=== PATIENT | female | born 1950 | race Two or more races ===

== ENCOUNTER 2022-06-11 12:06 | Emergency (ER) | payer OTHER ==
[~2022-06-11] VITALS: Ht 154.9 cm; Wt 61.2 kg
[2022-06-11] MEDS ORDERED: HUMALOG100 UNIT/2 SQ (12:30)
[2022-06-11] MEDS ORDERED: GLUCOTROL XL5 MG PO (12:31)
[2022-06-11] MEDS ORDERED: AVALIDE 300-121 EACH PO (12:31)
== END 2022-06-11 18:22 | disposition home or self-care (01) ==
LOC: ER 12:06
DX: G43.809 Other migraine, not intractable, without status migrainosus (principal); E11.9 Type 2 diabetes mellitus without complications; I10 Essential (primary) hypertension; E03.9 Hypothyroidism, unspecified; Z79.4 Long term (current) use of insulin

== ENCOUNTER 2023-10-21 09:45 | Outpatient (CLI) | payer OTHER ==
[~2023-10-21 09:45] MED LIST: AVALIDE 300-121 EACH PO; GLUCOTROL XL5 MG PO; HUMALOG100 UNIT/2 SQ
[2023-10-23 17:06] LABS: quan ag 0.03 IU/mL (.); quan ag 0.04 IU/mL (.); quan mito > 10.00 IU/mL (.); quant nil 0.01 IU/mL (.)
[2023-10-25 23:05] LABS: H.mycelial CF Negative (Neg:<1:2); H.mycelial ID Negative (Negative); H.yeast CF Negative (Neg:<1:2)
== END 2023-10-21 09:48 | disposition home or self-care (01) ==
LOC: LAB 09:45
PROVIDERS: ATTEND Internal Medicine Pulmonary Disease
DX: A15.0 Tuberculosis of lung (principal); B39.4 Histoplasmosis capsulati, unspecified

== ENCOUNTER 2023-10-21 10:40 | Outpatient (CLI) | payer OTHER | END 2023-10-21 10:48 | disposition home or self-care (01) | LOC: RAD 10:40 | PROVIDERS: ATTEND Internal Medicine Pulmonary Disease | DX: J98.6 Disorders of diaphragm (principal) ==